=== PATIENT | female | born 1980 | race Caucasian/White ===

== ENCOUNTER 2019-11-30 17:15 | Emergency (ER) | payer OTHER ==
[2019-11-30] MEDS ORDERED: SUMAtriptan 6 MG/0.5 ML VIAL SUBQ STA (17:46)
--- NOTE | 2019-11-30 17:48 | ED Physician Documentation ---
PD HPI HEAD INJURY - Stated complaint Stated Complaint: DIZZY,NAUSEA,MIGRAINE - Chief complaint Chief Complaint: Neuro - History obtained from History obtained from: Patient - Additional information Additional information: Gradual onset headache which is severe for about a week. Started in the frontal area and temples, throbbing. Now more occipital and neck. She does have pain with flexion of the neck. Also bilateral ear pressure. She has no history of headaches or migraines. No fevers. Review of Systems Ten Systems: 10 systems reviewed and negative Constitutional: denies: Fever, Chills Nose: denies: Rhinorrhea / runny nose, Congestion Throat: denies: Dental pain / toothache, Sore throat Cardiac: denies: Chest pain / pressure, Palpitations Respiratory: denies: Dyspnea, Cough PD PAST MEDICAL HISTORY - Present Medications Home Medications: Ambulatory Orders Medication Instructions Recorded Confirmed Cyclobenzaprine [Flexeril] 10 mg PO TID PRN #20 tablet 11/30/19 Oxycodone HCl/Acetaminophen 1 - 2 each PO Q6H PRN #10 tablet 11/30/19 [Percocet 5-325 mg Tablet] - Allergies Allergies/Adverse Reactions: Allergies Allergy/AdvReac Type Severity Reaction Status Date / Time ketorolac [From Toradol] Allergy Anaphylaxis Verified 11/30/19 17:29 PD ED PE NORMAL - Vitals Vital signs reviewed: Yes - General General: Alert and oriented X 3, Other (She is photophobic, slightly uncomfor table) - HEENT HEENT: PERRL, EOMI, Ears normal, Pharynx benign - Neck Neck: Other (Mild neck stiffness without overt meningismus.) - Cardiac Cardiac: RRR, No murmur - Respiratory Respiratory: No respiratory distress, Clear bilaterally - Abdomen Abdomen: Non tender - Back Back: No CVA TTP, No spinal TTP - Derm Derm: Normal color, Warm and dry - Extremities Extremities: No edema, No calf tenderness / cord - Neuro Neuro: Alert and oriented X 3, Normal speech Results - Vitals Vitals: Vital Signs - 24 hr 11/30/19 11/30/19 11/30/19 17:22 17:52 19:58 Temperature 36.7 C 36.4 C L Heart Rate 68 70 63 Respiratory 16 16 14 Rate Blood Pressure 125/69 116/79 107/81 H O2 Saturation 100 100 98 Oxygen O2 Source Room air - Labs Labs: Microbiology 11/30/19 18:20 CSF Culture - Preliminary Cerebral Spinal Fluid Laboratory Tests 11/30/19 11/30/19 11/30/19 18:20 18:48 18:48 WBC 7.3 RBC 4.64 Hgb 13.9 Hct 41.4 MCV 89.2 MCH 30.0 MCHC 33.6 RDW 13.3 Plt Count 337 MPV 9.0 Neut # (Auto) 4.6 Lymph # (Auto) 2.0 [place] # (Auto) 0.5 Eos # (Auto) 0.2 Baso # (Auto) 0.1 Absolute Nucleated RBC 0.00 Nucleated RBC % 0.0 Sodium 140 Potassium 3.5 Chloride 102 Carbon Dioxide 25 Anion Gap 13.0 BUN 13 Creatinine 0.9 Estimated GFR (MDRD) 70 L Glucose 78 Calcium 9.4 Total Bilirubin 0.9 AST 20 ALT 19 Alkaline Phosphatase 57 Total Protein 8.8 H Albumin 4.7 Globulin 4.1 Albumin/Globulin Ratio 1.1 Lipase 46 CSF Color COLORLESS CSF Clarity CLEAR Xanthrochromic ABSENT CSF WBC 1 CSF RBC 19 H CSF Cell Count Tube # CSF TUBE# 3 CSF Glucose 57 CSF Total Protein 20 Procedures - Lumbar Puncture Position: Sitting Location: L3-L4 Anesthesia: Local lidocaine CSF: Clear Other: Sterile prep and drape, Patient tolerated well, No complications PD MEDICAL DECISION MAKING - ED course ED course: 39-year-old woman with gradual onset severe headache, this is not typical for her. She is under a lot of stress and some compliance are consistent with both migraine or tension headache. Initially did not want any sedating medications because she was planning on driving, but actually her headache changed after the Imitrex subcutaneously and wanted to try something else. Nurse was unable to place an IV so she was given oral oxycodone and Reglan. Given the atypical nature of this headache for her and LP was done to rule out meningitis. It was slightly traumatic, but there is no evidence of meningitis and the small number of red cells is from the traumatic nature of the tap, noting there is no xanthochromia. Departure - Departure Disposition: 01 Home, Self Care Clinical Impression: Migraine Qualifiers: Migraine type: unspecified Status migrainosus presence: with status migrainosus Intractability: intractable Qualified Code(s): G43.911 - Migraine, unspecified, intractable, with status migrainosus Condition: Good Record reviewed to determine appropriate education?: Yes Instructions: ED Headache Tension, ED Headache Migraine Prescriptions: Cyclobenzaprine [Flexeril] 10 mg PO TID PRN #20 tablet PRN Reason: Spasms Oxycodone HCl/Acetaminophen [Percocet 5-325 mg Tablet] 1 - 2 each PO Q6H PRN #10 tablet PRN Reason: pain Comments: Call your doctor to arrange a follow-up appointment, make the next available appointment. In the interim, return anytime if worse or if new symptoms develop. Discharge Date/Time: 11/30/19 20:05
[2019-11-30] MEDS ORDERED: LIDOCAINE 2%-EPI 1:100000 20 ML MDV ONE (18:22)
[2019-11-30] MEDS ORDERED: METOCLOPRAMIDE 10 MG/2 ML VIAL IVP STA (18:35)
[2019-11-30] MEDS ORDERED: HYDROmorphone 1 MG/ML CARPUJECT IVP STA (18:35)
[2019-11-30 18:50] LABS: CLARITY,CSF CLEAR (CLEAR); CSF TUBE # CSF TUBE# 3
[2019-11-30 18:51] LABS: COLOR,CSF COLORLESS (COLORLESS); CSF XANTHOCHROMIA ABSENT (ABSENT); WHITE BLOOD CELL,CSF 1 /mm^3 (0-5)
[2019-11-30 18:54] LABS: RED BLOOD CELL,CSF 19 /mm^3 (0-1)
[2019-11-30 18:58] LABS: CSF - GLUCOSE 57 mg/dL (45-70)
[2019-11-30 19:15] LABS: BASOPHILS # (AUTO) 0.1 10^3/uL (0.0-0.1); BASOPHILS % (AUTO) 0.8 %; EOSINOPHILS # (AUTO) 0.2 10^3/uL (0.0-0.7); EOSINOPHILS % (AUTO) 2.3 %; HGB - HEMOGLOBIN 13.9 g/dL (12.0-16.0); LYMPHOCYTES % (AUTO) 27.6 %; MEAN CORPUSCULAR HGB CONC 33.6 g/dL (32.0-36.0); MEAN CORPUSCULAR VOLUME 89.2 fL (81.0-99.0); MONOCYTES # (AUTO) 0.5 10^3/uL (0.0-1.0); MONOCYTES % (AUTO) 6.6 %; NEUTROPHILS # (AUTO) 4.6 10^3/uL (1.5-6.6); NEUTROPHILS % (AUTO) 62.4 %; PLT - PLATELET COUNT 337 10^3/uL (130-450); RED BLOOD COUNT 4.64 10^6/uL (4.20-5.40); RED CELL DISTRIBUTION WIDTH 13.3 % (12.0-15.0); WHITE BLOOD COUNT 7.3 x10^3/uL (4.8-10.8)
[2019-11-30] MEDS ORDERED: oxyCODONE 5 MG TABLET PO STA (19:21)
[2019-11-30] MEDS ORDERED: METOCLOPRAMIDE 10 MG TABLET PO STA (19:21)
[2019-11-30 19:26] LABS: ALBUMIN 4.7 g/dL (3.2-5.5); ALBUMIN/GLOBULIN RATIO 1.1 (1.0-2.2); BILIRUBIN,TOTAL 0.9 mg/dL (0.2-1.0); CALCIUM 9.4 mg/dL (8.5-10.3); CREATININE 0.9 mg/dL (0.4-1.0); TOTAL PROTEIN 8.8 g/dL (6.7-8.2)
[2019-11-30 19:59] VITALS: BP 107/81
[2019-12-03 16:36] LABS: SOURCE CEREBROSPINAL FLUID
== END 2019-11-30 20:05 | disposition home or self-care (01) ==
LOC: ED 17:15
DX: G43.911 Migraine, unspecified, intractable, with status migrainosus (principal)
CPT/HCPCS: 36415; 62270; 80053; 82945; 83690; 84157; 85025; 87040; 87070; 87205; 87529; 89051; 96372; 99283; 99284; A9270; 86695; 86696

== ENCOUNTER 2019-12-04 11:52 | Emergency (ER) | payer OTHER ==
--- NOTE | 2019-12-04 13:24 | ED Physician Documentation ---
PD HPI HEADACHE - Stated complaint Stated Complaint: POST LP GAVIRIA - Chief complaint Chief Complaint: Neuro - History obtained from History obtained from: Patient - History of Present Illness Timing - onset: How many weeks ago (has had 1-2 weeks of headache and seen in ER 4 days ago with eval by labs and LP. She states GAVIRIA improved with meds and was lessened for couple of days and now back again since yesterday. similar in character though is worse with sitting/standing up. Still with light sensitive and nauseated. Less PO.) Timing - onset during: Light activity Timing - details: Gradual onset, Still present, Waxing and waning Location: Back, Right Quality: Throbbing, Aching Associated symptoms: Nausea, Vomiting. No: Fever, Stiff neck Worsened by: Light Contributing factors: No: Recent illness, Trauma Recently seen: Emergency Dept Review of Systems Constitutional: denies: Fever, Chills Nose: denies: Rhinorrhea / runny nose, Congestion Throat: denies: Sore throat Cardiac: denies: Chest pain / pressure Respiratory: denies: Cough GI: reports: Nausea, Vomiting. denies: Abdominal Pain Neurologic: reports: Generalized weakness. denies: Focal weakness, Altered mental status PD PAST MEDICAL HISTORY - Past Medical History Respiratory: Asthma - Past Surgical History General: Appendectomy - Present Medications Home Medications: Ambulatory Orders Medication Instructions Recorded Confirmed Cyclobenzaprine [Flexeril] 10 mg PO TID PRN #20 tablet 11/30/19 Oxycodone HCl/Acetaminophen 1 - 2 each PO Q6H PRN #10 tablet 11/30/19 [Percocet 5-325 mg Tablet] Amitriptyline HCl 25 mg PO QPM #15 tablet 12/04/19 Hydrocodone/Acetaminophen 1 each PO Q6H PRN #12 tablet 12/04/19 [Hydrocodone-Acetamin 5-325 mg] Ondansetron Odt [Zofran] 4 mg TL Q6H PRN #15 tablet 12/04/19 dexAMETHasone [Decadron] 4 mg PO DAILY #5 tablet 12/04/19 - Allergies Allergies/Adverse Reactions: Allergies Allergy/AdvReac Type Severity Reaction Status Date / Time ketorolac [From Toradol] Allergy Anaphylaxis Verified 12/04/19 11:59 - Social History Does the pt smoke?: No Smoking Status: Never smoker Does the pt drink ETOH?: No Does the pt have substance abuse?: No - Immunizations Immunizations are current?: Yes PD ED PE NORMAL - Vitals Vital signs reviewed: Yes - General General: Alert and oriented X 3, Well developed/nourished - HEENT HEENT: PERRL, EOMI - Neck Neck: Supple, no meningeal sign, No adenopathy - Cardiac Cardiac: RRR, No murmur - Respiratory Respiratory: Clear bilaterally - Abdomen Abdomen: Soft, Non tender - Back Back: No spinal TTP (back with healing LP needle sites without swelling, redness, nor focal tenderness. ) - Derm Derm: Normal color, Warm and dry - Extremities Extremities: No tenderness to palpate, Normal ROM s pain - Neuro Neuro: Alert and oriented X 3, knitter hand 2-12 intact, No motor deficit, No sensory deficit, Normal speech, Other Results - Vitals Vitals: Vital Signs - 24 hr 12/04/19 12/04/19 12/04/19 11:59 14:32 15:17 Heart Rate 81 84 70 Respiratory 16 16 16 Rate Blood Pressure 123/64 107/68 108/60 O2 Saturation 100 100 100 12/04/19 16:34 Heart Rate 67 Respiratory 16 Rate Blood Pressure 103/61 O2 Saturation 100 Oxygen O2 Source Room air - Labs Labs: Laboratory Tests 12/04/19 12/04/19 13:55 13:55 WBC 6.4 RBC 4.26 Hgb 12.8 Hct 38.1 MCV 89.4 MCH 30.0 MCHC 33.6 RDW 13.1 Plt Count 287 MPV 9.0 Neut # (Auto) 4.8 Lymph # (Auto) 1.2 L [place] # (Auto) 0.3 Eos # (Auto) 0.1 Baso # (Auto) 0.0 Absolute Nucleated RBC 0.00 Nucleated RBC % 0.0 Sodium 140 Potassium 3.7 Chloride 105 Carbon Dioxide 24 Anion Gap 11.0 BUN 10 Creatinine 1.0 Estimated GFR (MDRD) 62 L Glucose 91 Calcium 8.7 C-Reactive Protein < 1.0 - Rads (name of study) head CT Radiology: Prelim report reviewed (no acut process), See rad report PD MEDICAL DECISION MAKING - ED course Complexity details: re-evaluated patient (improved quite a bit with IV fluids, and meds targeted to migraine. She is able to walk to bathroom with minimal headahce, but not compleltely resolved. ), considered differential (was okay for couple of days, now GAVIRIA again. Seems counter to what expeced with post LP. But does feel worse with sitting up. ), d/w patient Departure - Departure Disposition: 01 Home, Self Care Clinical Impression: New persistent daily headache Migraine Qualifiers: Migraine type: without aura Condition: Stable Record reviewed to determine appropriate education?: Yes Instructions: ED Cephalgia Unspecified Follow-Up: JOSUE Huggins [Provider Group] Prescriptions: Amitriptyline HCl 25 mg PO QPM #15 tablet dexAMETHasone [Decadron] 4 mg PO DAILY #5 tablet Hydrocodone/Acetaminophen [Hydrocodone-Acetamin 5-325 mg] 1 each PO Q6H PRN #12 tablet PRN Reason: Pain Ondansetron Odt [Zofran] 4 mg TL Q6H PRN #15 tablet PRN Reason: Nausea / Vomiting Comments: Rest further the next 1 to 2 days with light activity only. Try to stay well- hydrated. Decadron steroid daily for the next 5 days. Ondansetron every 6 hours if needed for nausea. Add Tylenol or ibuprofen or hydrocodone as needed for headache. Given the new onset of consistent headache, we can also try amitriptyline 25 mg nightly for 1 to 2 weeks presuming a migraine or tension headache or other functional headache such as daily headache syndrome etc. [place] call tomorrow for an appointment. If unable to see them in persistent symptoms more than 2 to 3 days, return here and return if worsened. Discharge Date/Time: 12/04/19 16:51
[2019-12-04] MEDS ORDERED: diphenhydrAMINE INJ 50 MG/ML VIAL IVP STA (13:44)
[2019-12-04] MEDS ORDERED: DEXAMETHASONE 10 MG/ML VIAL IVP STA (13:44)
[2019-12-04] MEDS ORDERED: SODIUM CHLORIDE 0.9% 1,000 ML IV STA ×2 (13:44→13:46)
[2019-12-04] MEDS ORDERED: PROCHLORPERAZINE 10 MG/2 ML VIAL IVP STA (13:44)
[2019-12-04 14:08] LABS: BASOPHILS % (AUTO) 0.5 %; EOSINOPHILS # (AUTO) 0.1 10^3/uL (0.0-0.7); EOSINOPHILS % (AUTO) 0.9 %; HGB - HEMOGLOBIN 12.8 g/dL (12.0-16.0); LYMPHOCYTES # (AUTO) 1.2 10^3/uL (1.5-3.5); LYMPHOCYTES % (AUTO) 18.3 %; MEAN CORPUSCULAR HGB CONC 33.6 g/dL (32.0-36.0); MEAN CORPUSCULAR VOLUME 89.4 fL (81.0-99.0); MONOCYTES # (AUTO) 0.3 10^3/uL (0.0-1.0); MONOCYTES % (AUTO) 5.2 %; NEUTROPHILS # (AUTO) 4.8 10^3/uL (1.5-6.6); NEUTROPHILS % (AUTO) 74.8 %; PLT - PLATELET COUNT 287 10^3/uL (130-450); RED BLOOD COUNT 4.26 10^6/uL (4.20-5.40); RED CELL DISTRIBUTION WIDTH 13.1 % (12.0-15.0); WHITE BLOOD COUNT 6.4 x10^3/uL (4.8-10.8)
[2019-12-04 14:22] LABS: BUN - BLOOD UREA NITROGEN 10 mg/dL (6-20); CALCIUM 8.7 mg/dL (8.5-10.3); CARBON DIOXIDE - CO2 24 mmol/L (21-32); CHLORIDE 105 mmol/L (101-111); GLUCOSE 91 mg/dL (70-100); SODIUM 140 mmol/L (135-145)
--- NOTE | 2019-12-04 14:24 | CT Report ---
PROCEDURE: HEAD WO INDICATIONS: headache for 1-2 weeks TECHNIQUE: Noncontrast 4.5 mm thick angled axial sections acquired from the foramen magnum to the vertex. For r adiation dose reduction, the following was used: automated exposure control, adjustment of mA and/or kV according to patient size. COMPARISON: None. FINDINGS: Image quality: Excellent. CSF spaces: Basal cisterns are patent. No extra-axial fluid collections. Ventricles are normal in size and shape. Brain: No midline shift. No intracranial masses or hemorrhage. [place]-white matter interface is norm al. Skull and face: Calvarium and visualized facial bones are intact, without suspicious lesions. Sinuses: Visualized sinuses and mastoids are clear. IMPRESSION: Unremarkable head CT. No evidence of acute stroke, hemorrhage, or mass. Reviewed by: Edson Hutson MD on 12/04/2019 2:23 PM PDT Approved by: Edson Hutson MD on 12/04/2019 2:23 PM PDT Station ID: [id number]
[2019-12-04 14:45] LABS: CRP - C-REACTIVE PROTEIN < 1.0 mg/dL (0-1.0)
[2019-12-04 16:35] VITALS: BP 103/61
== END 2019-12-04 16:51 | disposition home or self-care (01) ==
LOC: ED 11:52
DX: G43.009 Migraine without aura, not intractable, without status migrainosus (principal)
CPT/HCPCS: 36415; 70450; 80048; 85025; 86140; 96361; 96374; 99284; J1200

== ENCOUNTER 2021-06-13 20:54 | Emergency (ER) | payer OTHER ==
--- NOTE | 2021-06-13 21:29 | XRAY Report ---
PROCEDURE: Chest 1 View X-Ray INDICATIONS: Chest pain TECHNIQUE: One view of the chest was acquired. COMPARISON: None. FINDINGS: Surgical changes and devices: None. Lungs and pleura: No pleural effusions or pneumothorax. Approximately 1 cm nodular opacity in the ri ght midlung is nonspecific. Lungs otherwise clear. Mediastinum: Mediastinal contours appear normal. Heart size is normal. Bones and chest wall: No suspicious bony lesions. Overlying soft tissues appear unremarkable. IMPRESSION: Approximately 1 cm nodular opacity in the right midlung is nonspecific. This is likely infectious/inf lammatory, especially in the absence of any prior malignancy. Correlation with any prior studies to b e helpful to document stability. A CT chest could be considered for further evaluation, and can be ob tained in a nonemergent outpatient basis if the patient is stable. Reviewed by: Luis Fernando Pan MD on 06/13/2021 9:27 PM PDT Approved by: Luis Fernando Pan MD on 06/13/2021 9:27 PM PDT Station ID: [id number]
[2021-06-13 21:39] LABS: BASOPHILS # (AUTO) 0.1 10^3/uL (0.0-0.1); BASOPHILS % (AUTO) 0.9 %; EOSINOPHILS # (AUTO) 0.2 10^3/uL (0.0-0.7); EOSINOPHILS % (AUTO) 2.8 %; HGB - HEMOGLOBIN 13.3 g/dL (12.0-16.0); LYMPHOCYTES # (AUTO) 2.3 10^3/uL (1.5-3.5); LYMPHOCYTES % (AUTO) 28.1 %; MEAN CORPUSCULAR HEMOGLOBIN 29.4 pg (27.0-31.0); MEAN CORPUSCULAR HGB CONC 33.3 g/dL (32.0-36.0); MEAN CORPUSCULAR VOLUME 88.3 fL (81.0-99.0); MEAN PLATELET VOLUME 9.3 fL (7.9-10.8); MONOCYTES # (AUTO) 0.6 10^3/uL (0.0-1.0); MONOCYTES % (AUTO) 6.9 %; NEUTROPHILS % (AUTO) 61.1 %; PLT - PLATELET COUNT 319 10^3/uL (130-450); RED BLOOD COUNT 4.53 10^6/uL (4.20-5.40); RED CELL DISTRIBUTION WIDTH 13.3 % (12.0-15.0); WHITE BLOOD COUNT 8.1 x10^3/uL (4.8-10.8)
[2021-06-13] MEDS ORDERED: SODIUM CHLORIDE 0.9% 1,000 ML IV STA (21:39)
[2021-06-13 21:47] LABS: ALBUMIN 3.9 g/dL (3.2-5.5); ALBUMIN/GLOBULIN RATIO 1.1 (1.0-2.2); BILIRUBIN,TOTAL 0.5 mg/dL (0.2-1.0); CALCIUM 8.8 mg/dL (8.5-10.3); CREATININE 0.9 mg/dL (0.4-1.0); POTASSIUM 3.8 mmol/L (3.5-5.0); TOTAL PROTEIN 7.4 g/dL (6.7-8.2)
[2021-06-13 22:04] LABS: HCG UR QUAL NEGATIVE
--- NOTE | 2021-06-13 22:04 | ED Physician Documentation ---
History of Present Illness - Stated complaint Stated Complaint: PALPITATIONS/SOA/HEADACHES - Chief complaint Chief Complaint: Cardiac - History obtained from History obtained from: Patient - Additonal information Additional information: Patient is a 41-year-old female with no Significant past medical history presenting for evaluation of palpitations. She was recently told that she may have a heart block (patient believes first-degree). She has been having episodes of palpitations for the last year and was referred to a lan analyst. She has an appointment to be seen next week. For the last 3 days she has been having increased palpitations with feeling heart pounding sensationWhich she feels primarily at night when laying down but also throughout the day. She denies associated chest pain or difficulty breathing. At times she does feel dizzy and lightheaded. No vomiting, diarrhea. She does at times also report feeling heaviness in all of her muscles and fatigue.Due to increased heart pounding sensation today patient came to the emergency department for evaluation. Denies alcohol, drug use, concern for , Excess caffeine use.She has been using a natural electrolyte drink in the last 3 weeks Denies that it is an energy drink. Review of Systems Constitutional: denies: Fever Nose: denies: Congestion Cardiac: reports: Palpitations. denies: Chest pain / pressure Respiratory: denies: Cough GI: denies: Abdominal Pain, Vomiting : denies: Dysuria Musculoskeletal: denies: Back pain Neurologic: reports: Generalized weakness, Headache (History of migraines, not worsening). denies: Syncope, Head injury PD PAST MEDICAL HISTORY - Past Medical History Respiratory: Asthma - Past Surgical History General: Appendectomy - Present Medications Home Medications: Ambulatory Orders Medication Instructions Recorded Confirmed Cetirizine HCl [Zyrtec] 10 mg PO DAILY 06/13/21 06/13/21 Clobetasol 0.05% Oint [Temovate 1 applic TOP DAILY 06/13/21 06/13/21 0.05% Oint] Ketoconazole/Skin Cleanser 1 applic TOP DAILY 06/13/21 06/13/21 [K[place] 2% Foam Kit] Norgestimate-Ethinyl Estradiol 1 tab PO DAILY 06/13/21 06/13/21 [Qym-Rx-Pacvgcog Tablet] - Allergies Allergies/Adverse Reactions: Allergies Allergy/AdvReac Type Severity Reaction Status Date / Time ketorolac [From Toradol] Allergy Anaphylaxis Verified 06/13/21 20:58 - Social History Does the pt smoke?: No Smoking Status: Never smoker Does the pt drink ETOH?: No Does the pt have substance abuse?: No - Immunizations Immunizations are current?: Yes PD ED PE NORMAL - General General: Alert and oriented X 3, No acute distress, Well developed/nourished - HEENT HEENT: Atraumatic, Moist mucous membranes - Neck Neck: Supple, no meningeal sign - Cardiac Cardiac: RRR, No murmur, Strong equal pulses - Respiratory Respiratory: No respiratory distress, Clear bilaterally - Abdomen Abdomen: Normal bowel sounds, Soft, Non tender, Non distended - Derm Derm: Normal color, No rash - Extremities Extremities: No deformity, No edema - Neuro Neuro: Alert and oriented X 3, No motor deficit, No sensory deficit, Normal speech Eye Opening: Spontaneous Motor: Obeys Commands Verbal: Oriented GCS Score: 15 - Psych Psych: Normal mood, Normal affect Results - Vitals Vitals: Vital Signs - 24 hr 06/13/21 06/13/21 06/13/21 20:58 21:31 21:33 Temperature 36.5 C Heart Rate 78 68 70 Respiratory 16 16 16 Rate Blood Pressure 137/93 H 121/69 121/69 O2 Saturation 98 99 99 06/13/21 06/13/21 22:13 22:51 Temperature Heart Rate 73 73 Respiratory 16 16 Rate Blood Pressure 108/68 108/68 O2 Saturation 99 99 Oxygen O2 Source Room air - EKG (time done) 2113 Rate: Rate (enter#) (71) Rhythm: NSR Roy: Normal Intervals: Normal HI Ischemia: No: ST elevation c/w ischemia Computer interpretation: Agree with computer - Labs Labs: Laboratory Tests 06/13/21 06/13/21 06/13/21 21:26 21:26 21:26 WBC 8.1 RBC 4.53 Hgb 13.3 Hct 40.0 MCV 88.3 MCH 29.4 MCHC 33.3 RDW 13.3 Plt Count 319 MPV 9.3 Neut # (Auto) 5.0 Lymph # (Auto) 2.3 [place] # (Auto) 0.6 Eos # (Auto) 0.2 Baso # (Auto) 0.1 Absolute Nucleated RBC 0.00 Nucleated RBC % 0.0 Sodium 137 Potassium 3.8 Chloride 102 Carbon Dioxide 26 Anion Gap 9.0 BUN 20 Creatinine 0.9 Estimated GFR (MDRD) 70 L Glucose 102 H Calcium 8.8 Total Bilirubin 0.5 AST 21 ALT 18 Alkaline Phosphatase 57 Troponin I High Sens < 2.3 L Total Protein 7.4 Albumin 3.9 Globulin 3.5 Albumin/Globulin Ratio 1.1 Lipase 46 Urine HCG, Qual 06/13/21 21:50 WBC RBC Hgb Hct MCV MCH MCHC RDW Plt Count MPV Neut # (Auto) Lymph # (Auto) [place] # (Auto) Eos # (Auto) Baso # (Auto) Absolute Nucleated RBC Nucleated RBC % Sodium Potassium Chloride Carbon Dioxide Anion Gap BUN Creatinine Estimated GFR (MDRD) Glucose Calcium Total Bilirubin AST ALT Alkaline Phosphatase Troponin I High Sens Total Protein Albumin Globulin Albumin/Globulin Ratio Lipase Urine HCG, Qual NEGATIVE PD MEDICAL DECISION MAKING - ED course Complexity details: reviewed results, re-evaluated patient, d/w patient ED course: Patient presenting for evaluation of palpitations. She is scheduled to see a lan analyst next week. EKG is reassuring with regular sinus rhythm and no signs of ectopy or arrhythmia.Labs are also unrevealing with no signs of cardiac ischemia After symptoms lasting greater than 6 hours. Patient is PERC negative. She has been symptom-free while in the emergency department.Did review abnormal chest x-ray finding and need for close follow-up with primary care doctor For outpatient CT scan of the chest. Patient feels comfortable with discharge. She is aware of strict return precautions. She will plan to follow-up with the lan analyst as scheduled next week. Departure - Departure Disposition: 01 Home, Self Care Clinical Impression: Palpitations, Abnormal chest xray Condition: Stable Instructions: ED Palpitations Comments: You were evaluated for palpitations this evening. Your lab tests are reassuring and your EKG appears to be a normal rhythm. Please follow-up with the lan analyst as scheduled next week.Please limit alcohol and caffeine use. I would also stop anySupplement drinks even if they are labeled as natural For the time being until you see the lan analyst. You had a chest x-ray done that showed an abnormal nodule in the right lung.I do not believe it is related to an infection Based on your history and exam today. This abnormal nodule does need close follow-up with your primary care doctor. You may need another chest x-ray or even a CT scan of your chest to better evaluate this area. IMPRESSION: Approximately 1 cm nodular opacity in the right midlung is nonspecific. This is likely infectious/inflammatory, especially in the absence of any prior malignancy. Correlation with any prior studies to be helpful to document stability. A CT chest could be considered for further evaluation, and can be obtained in a nonemergent outpatient basis if the patient is stable. Please return to the emergency department with any concerning symptoms such as dizziness, fainting, Heart racing,chest pain, difficulty breathing. Discharge Date/Time: 06/13/21 22:53
[2021-06-13 22:33] VITALS: BP 108/68
== END 2021-06-13 22:53 | disposition home or self-care (01) ==
LOC: ED 20:54
DX: R00.2 Palpitations (principal); R91.8 Other nonspecific abnormal finding of lung field
CPT/HCPCS: 36415; 80053; 81025; 83690; 84484; 85025; 93005; 99284

== ENCOUNTER 2021-07-03 10:35 | Emergency (ER) | payer OTHER ==
--- NOTE | 2021-07-03 15:09 | ED Physician Documentation ---
PD HPI URI - Stated complaint Stated Complaint: SOA - Chief complaint Chief Complaint: Resp - History obtained from History obtained from: Patient - History of Present Illness Timing - onset: Yesterday Timing details: Abrupt onset, Still present Associated symptoms: Fever, Chills, Nasal congestion, Dry cough, Dyspnea (with wheezing/exac of her asthma, with MDI not working well.) Contributing factors: Sick contact (her 2 kids at home with URI symptoms and have tested positive for COVID 2 days ago. Patient ran out of home tests, but believes she likely has COVID.) Improves by: No: MDI/nebulizer Worsened by: Activity, Breathing Similar symptoms before: Has not had sx before Recently seen: Not recently seen Review of Systems Constitutional: reports: Fever, Chills, Myalgias Nose: reports: Congestion. denies: Rhinorrhea / runny nose Throat: denies: Sore throat Cardiac: denies: Chest pain / pressure Respiratory: reports: Dyspnea, Cough, Wheezing GI: denies: Nausea, Vomiting, Diarrhea Skin: denies: Rash PD PAST MEDICAL HISTORY - Past Medical History Cardiovascular: None Respiratory: Asthma Neuro: None Endocrine/Autoimmune: None - Past Surgical History General: Appendectomy - Present Medications Home Medications: Ambulatory Orders Medication Instructions Recorded Confirmed Cetirizine HCl [Zyrtec] 10 mg PO DAILY 06/13/21 06/13/21 Clobetasol 0.05% Oint [Temovate 1 applic TOP DAILY 06/13/21 06/13/21 0.05% Oint] Ketoconazole/Skin Cleanser 28 1 applic TOP DAILY 06/13/21 06/13/21 [Ketodan 2% Foam Kit] Norgestimate-Ethinyl Estradiol 1 tab PO DAILY 06/13/21 06/13/21 [Juy-Rc-Hvcqbtqn Tablet] Benzonatate [Tessalon] 100 mg PO TID PRN #20 cap 07/03/21 Nirmatrelvir/Ritonavir [Paxlovid] 1 kit PO BID 5 Days #1 kit 07/03/21 Ondansetron Odt [Zofran] 4 mg TL Q6H PRN #10 tablet 07/03/21 dexAMETHasone [Decadron] 4 mg PO DAILY #5 tablet 07/03/21 - Allergies Allergies/Adverse Reactions: Allergies Allergy/AdvReac Type Severity Reaction Status Date / Time ketorolac [From Toradol] Allergy Anaphylaxis Verified 07/03/21 10:52 - Social History Does the pt smoke?: No Smoking Status: Never smoker Does the pt drink ETOH?: No Does the pt have substance abuse?: No - Immunizations Immunizations are current?: Yes PD ED PE NORMAL - Vitals Vital signs reviewed: Yes - General General: Alert and oriented X 3, No acute distress, Well developed/nourished - HEENT HEENT: Moist mucous membranes, Pharynx benign - Neck Neck: Supple, no meningeal sign, No adenopathy - Cardiac Cardiac: RRR, No murmur - Respiratory Respiratory: No respiratory distress. No: Clear bilaterally (no coarse sounds but has diffuse exp wheezing. ) - Abdomen Abdomen: Soft, Non tender - Derm Derm: Normal color, Warm and dry - Extremities Extremities: No edema, No calf tenderness / cord - Neuro Neuro: Alert and oriented X 3, No motor deficit, Normal speech Results - Vitals Vitals: Oxygen O2 Source Room air PD MEDICAL DECISION MAKING - ED course Complexity details: considered differential (Her 2 children at home have tested positive for COVID and she has cough fever and viral syndrome. They did not have a home test available. She would prefer to have a test for COVID prior to any antiviral type medicines. We will obtain that and meanwhile treat her asthma exacerbation.), d/w patient ED course: presume she has COVID with symptoms and her 2 children are positive in the past few days, and has asthma exac with it. SHe might benefit from antivirals. She wants to wait for positive test, so I wrote xript for it rather than dispensing kit from ER. Departure - Departure Disposition: 01 Home, Self Care Clinical Impression: Close exposure to COVID-19 virus, Upper respiratory infection Exacerbation of asthma Qualifiers: Asthma severity: mild Asthma persistence: intermittent Qualified Code(s): J45.21 - Mild intermittent asthma with (acute) exacerbation Condition: Stable Record reviewed to determine appropriate education?: Yes Follow-Up: MICHELLE TIJERINA ARNP [Primary Care Provider] - Prescriptions: dexAMETHasone [Decadron] 4 mg PO DAILY #5 tablet Nirmatrelvir/Ritonavir [Paxlovid] 1 kit PO BID 5 Days #1 kit Benzonatate [Tessalon] 100 mg PO TID PRN #20 cap PRN Reason: Cough Ondansetron Odt [Zofran] 4 mg TL Q6H PRN #10 tablet PRN Reason: Nausea / Vomiting Comments: We did do a COVID test and that should result likely tomorrow. If that is positive, as presumption given your kids have COVID, then you would be eligible for an antiviral medication combination (paxlovid which is two antiviral medicines). You can take that if your COVID test is positive. Regarding your asthma exacerbation, continue with your albuterol inhaler with spacer 2 to 3 puffs 4 times a day regularly and extra times if needed for the next 7 to 10 days. Extra doses if needed. To that we would add neck some Methasone oral steroid as a stronger version of the Flovent that you normally use. Benzonatate or Tessalon if needed for cough. Tylenol if needed for fevers or pains. I transmitted your prescriptions to the [facility] pharmacy here in [place]. Discharge Date/Time: 07/03/21 15:51
[2021-07-03] MEDS ORDERED: CHERRY SYRUP 10 ML UDC PO ONE (15:23)
[2021-07-03] MEDS ORDERED: DEXAMETHASONE 10 MG/ML VIAL PO STA (15:23)
[2021-07-03] MEDS ORDERED: BENZONATATE 100 MG CAPSULE PO STA (15:23)
[2021-07-03] MEDS: ONDANSETRON ODT 4 MG TABLET TL STA ×2 (15:40)
[2021-07-03 15:47] VITALS: BP 119/67
== END 2021-07-03 15:51 | disposition home or self-care (01) ==
LOC: ED 10:35
DX: U07.1 COVID-19 (principal)
CPT/HCPCS: 87635; 99284; A9270; Q0162

== ENCOUNTER 2021-12-26 21:22 | Emergency (ER) | payer OTHER ==
[2021-12-26 21:47] LABS: RAPID STREP SCREEN Negative (Negative)
[2021-12-26 23:24] LABS: B. PARAPERTUSSIS- RESP PCR PAN NOT DETECTED; B. PERTUSSIS- RESP PCR PANEL NOT DETECTED; C. PNEUMONIAE- RESP PCR PANEL NOT DETECTED; CORONAVIRUS 229E-RESP PCR NOT DETECTED; CORONAVIRUS HKU1-RESP PCR NOT DETECTED; CORONAVIRUS NL63-RESP PCR NOT DETECTED; CORONAVIRUS OC43-RESP PCR NOT DETECTED; HUMAN METAPNEUMOVIRUS NOT DETECTED; INFLUENZA A- RESP PCR PANEL NOT DETECTED; INFLUENZA B - RESP PCR PANEL NOT DETECTED; M. PNEUMONIAE- RESP PCR PANEL NOT DETECTED; PARAINFLUENZA VIRUS 1 NOT DETECTED; PARAINFLUENZA VIRUS 2 NOT DETECTED; PARAINFLUENZA VIRUS 3 NOT DETECTED; PARAINFLUENZA VIRUS 4 NOT DETECTED; RHINOVIRUS/ENTEROVIRUS DETECTED; RSV- RESP PCR PANEL NOT DETECTED; SARS-CoV-2 -RESP PCR PANEL NOT DETECTED
--- NOTE | 2021-12-26 23:30 | ED Physician Documentation ---
PD HPI URI - Stated complaint Stated Complaint: FEVER/ACHES/THROAT PX - Chief complaint Chief Complaint: Fever - History obtained from History obtained from: Patient - History of Present Illness Timing - onset: How many days ago (4) Timing duration: Days (4) Timing details: Gradual onset, Still present Associated symptoms: Nasal congestion, Rhinorrhea, Sore throat, Dry cough Contributing factors: Sick contact (went to [facility] in [place] last week) Improves by: Rest, Medication Similar symptoms before: Has not had sx before Recently seen: Not recently seen - Additional information Additional information: Previously well 41-year-old Kelly Kern has developed symptoms of nasal congestion cough sore throat and some occasional dyspnea. She has a disabled daughter who has recently had to have casting on her legs and she has spent some time down at [facility] in [place]. Her daughter is currently being treated for otitis. Review of Systems Constitutional: reports: Fever Eyes: denies: Decreased vision Ears: reports: Tinnitus/ringing. denies: Ear pain Nose: reports: Rhinorrhea / runny nose, Congestion Throat: reports: Sore throat. denies: Dental pain / toothache Cardiac: denies: Chest pain / pressure, Palpitations Respiratory: reports: Dyspnea, Cough GI: denies: Abdominal Pain, Nausea, Vomiting, Constipation, Diarrhea : denies: Dysuria, Frequency PD PAST MEDICAL HISTORY - Past Medical History Cardiovascular: None Respiratory: Asthma Neuro: None Endocrine/Autoimmune: None - Past Surgical History General: Appendectomy - Present Medications Home Medications: Ambulatory Orders Medication Instructions Recorded Confirmed Norgestimate-Ethinyl Estradiol 1 tab PO DAILY 06/13/21 06/13/21 [Zcf-Hf-Uobisoxi Tablet] - Allergies Allergies/Adverse Reactions: Allergies Allergy/AdvReac Type Severity Reaction Status Date / Time ketorolac [From Toradol] Allergy Anaphylaxis Verified 12/26/21 21:34 - Social History Does the pt smoke?: No Smoking Status: Never smoker Does the pt drink ETOH?: No Does the pt have substance abuse?: No - Immunizations Immunizations are current?: Yes PD ED PE NORMAL - Vitals Vital signs reviewed: Yes (normal ) - General General: Alert and oriented X 3, No acute distress, Well developed/nourished - HEENT HEENT: Atraumatic, PERRL, EOMI, Ears normal, Other (mild pharyngeal erythema) - Neck Neck: Supple, no meningeal sign, No bony TTP - Cardiac Cardiac: RRR, No murmur - Respiratory Respiratory: No respiratory distress, Clear bilaterally - Abdomen Abdomen: Normal bowel sounds, Soft, Non tender, Non distended, No organomegaly - Back Back: No CVA TTP, No spinal TTP - Derm Derm: Normal color, Warm and dry, No rash - Extremities Extremities: No deformity, No edema - Neuro Neuro: Alert and oriented X 3, 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 parapertussis DNA (PCR) NOT DETECTED Nasal Coronavir 229E PCR NOT DETECTED Nasal Coronavir HKU1 PCR NOT DETECTED Nasal Coronavir NL63 PCR NOT DETECTED Nasal Coronavir OC43 PCR NOT DETECTED Nasal Enterovir/Rhinovir PCR DETECTED A Nasal Influenza B PCR NOT DETECTED Nasal Influenza A PCR NOT DETECTED Nasal Parainfluen 1 PCR NOT DETECTED Nasal Parainfluen 2 PCR NOT DETECTED Nasal Parainfluen 3 PCR NOT DETECTED Nasal Parainfluen 4 PCR NOT DETECTED Nasal RSV (PCR) NOT DETECTED Nasal B.pertussis DNA PCR NOT DETECTED Nasal C.pneumoniae (PCR) NOT DETECTED Antony Human Metapneumo PCR NOT DETECTED Nasal M.pneumoniae (PCR) NOT DETECTED Nasal SARS-CoV-2 (PCR) NOT DETECTED Group A Strep Rapid Negative PD MEDICAL DECISION MAKING - ED course Complexity details: reviewed results, re-evaluated patient, considered differential, d/w patient ED course: 41-year-old female with upper respiratory symptoms and a sore throat is concerned about the possibilities of contagion for her daughter. The patient tested positive for rhinovirus. Her daughter is currently being treated for otitis and could very well have had rhinovirus. The mother is reassured she is given a dose of dexamethasone for symptom control and encouraged to increase fluids. Departure - Departure Disposition: 01 Home, Self Care Clinical Impression: Rhinovirus infection Condition: Stable Instructions: Cold Virus Follow-Up: MICHELLE TIJERINA ARNP [Primary Care Provider] - Comments: Kelly, today it looks like you have infection with rhinovirus. This usually causes a cough nasal congestion sore throat and sometimes some shortness of breath. There is no evidence of ear infection today. The recommendation is to increase your fluids and use Tylenol or Advil for pains and fever. Expect to have improvement over the next 3 days.
[2021-12-26 23:32] VITALS: BP 113/72
[2021-12-26] MEDS ORDERED: DEXAMETHASONE 10 MG/ML VIAL PO STA (23:33)
[2021-12-26] MEDS ORDERED: CHERRY SYRUP 10 ML UDC PO ONE (23:33)
== END 2021-12-26 23:45 | disposition home or self-care (01) ==
LOC: ED 21:22
DX: B34.8 Other viral infections of unspecified site (principal); Z20.822 Contact with and (suspected) exposure to COVID-19
CPT/HCPCS: 87070; 87077; 87430; 87633; 99282; 99283; A9270

== ENCOUNTER 2022-03-18 09:07 | Outpatient (CLI) | payer OTHER ==
--- NOTE | 2022-03-18 13:15 | MRI Report ---
PROCEDURE: THORACIC SPINE WO INDICATIONS: CERVICALGIA, DORSALGIA TECHNIQUE: Noncontrast sagittal T1 spine echo and T2 fast spin echo, sagittal STIR, axial T1 and T2 fast spin ec ho through the thoracic spine. COMPARISON: None. FINDINGS: Image quality: Excellent. Alignment and Curvature: There is normal bony alignment. Bone Marrow: Mild increased T2-weighted signal is seen in the right transverse processes of the T5 a nd T6 vertebra, best seen on parasagittal STIR images (image 5 of series 6, and image 14 of series 8) . Marrow is of normal overall signal. No acute vertebral body compression fractures. Multilevel Mod ic type II degenerative endplate changes. Spinal Cord: Visualized spinal cord is normal in size and signal. Paraspinous Soft Tissues: No paravertebral masses. Miscellaneous: On axial images, central canal and foramina appear widely patent at all scanned level s. IMPRESSION: 1.Nonspecific focal [id number]-[id number] signal in the right transverse processes of the T5 and T6 verteb ra. Findings could be secondary to mild trabecular bone injury if there has been recent trauma, versu s benign hemangioma or other benign or malignant intraosseous masses. Consider repeat MRI with and wi thout contrast for further evaluation based on the clinical suspicion. 2.Mild multilevel degenerative endplate changes. No significant spinal canal stenosis or neuroforamin al narrowing. Reviewed by: Job Call MD on 03/18/2022 1:13 PM PST Approved by: Job Call MD on 03/18/2022 1:13 PM PST Station ID: [id number]
--- NOTE | 2022-03-18 15:51 | MRI Report ---
PROCEDURE: CERVICAL SPINE WO INDICATIONS: CERVICALGIA, DORSALGIA TECHNIQUE: Noncontrast sagittal T1 spin echo and T2 fast spin echo, sagittal STIR, foraminal oblique sagittal T2 fast spin echo, and axial gradient echo or T2 fast spin echo through the cervical spine. COMPARISON: None. FINDINGS: Image quality: Excellent. Alignment and Curvature: There is an appearance of cervical straightening. Bone Marrow: Marrow demonstrates normal overall signal. Spinal Cord: Visualized spinal cord has normal size and signal. No cerebellar tonsillar herniation. Paraspinous Soft Tissues: No paravertebral masses. Prevertebral soft tissues are normal in thicknes s. Discs: Minimal desiccation is at C6-7. C2-C3: No disc bulge, spinal stenosis or foraminal narrowing. C3-C4: No disc bulge, spinal stenosis or foraminal narrowing. C4-C5: Minimal disc bulge with slight effacement anterior thecal sac. No foraminal narrowing. C5-C6: Minimal disc bulge with slight effacement of the anterior thecal sac. No foraminal narrowing. C6-C7: No disc bulge, spinal stenosis or foraminal narrowing. C7-T1: No disc bulge, spinal stenosis or foraminal narrowing. IMPRESSION: Minimal disc bulges at C4-5 and C6-7. No foraminal narrowing. Reviewed by: Marjan García MD on 03/18/2022 3:50 PM PST Approved by: Marjan García MD on 03/18/2022 3:50 PM PST Station ID: [id number]
== END 2022-03-18 09:08 | disposition home or self-care (01) ==
LOC: DI 09:07
PROVIDERS: ATTEND Nurse Practitioner Family
DX: M54.2 Cervicalgia (principal); M47.814 Spondylosis without myelopathy or radiculopathy, thoracic region

== ENCOUNTER 2022-03-18 09:07 | Outpatient (CLI) | payer OTHER ==
--- NOTE | 2022-03-18 15:32 | MRI Report ---
PROCEDURE: LUMBAR SPINE WO INDICATIONS: LOW BACK PAIN TECHNIQUE: Noncontrast sagittal T1 spin echo and T2 fast echo, sagittal STIR, axial T1 and T2 fast spin echo thr ough the lumbar spine. In cases with scoliosis, additional coronal T2 fast spin echo may be performe d. COMPARISON: None. FINDINGS: Image quality: Excellent. Alignment and Curvature: There is normal bony alignment. Bone Marrow: Marrow is of normal overall signal. No acute vertebral body compression fractures. Spinal Cord: Conus medullaris terminates at the L1 level. Visualized cord demonstrates normal signa l and size. Paraspinous Soft Tissues: No paravertebral masses. Minimal to mild disc desiccation is present L4-5, L5-S1. L1-L2: No disc bulge, spinal stenosis or foraminal narrowing. L2-L3: No disc bulge, spinal stenosis or foraminal narrowing. Minimal epidural lipomatosis. L3-L4: No disc bulge, spinal stenosis or foraminal narrowing. Minimal epidural lipomatosis. L4-L5: Minimal disc bulge without spinal stenosis. No foraminal narrowing. L5-S1: Minimal disc bulge without spinal stenosis or foraminal narrowing. IMPRESSION: Minimal early degenerative changes most minimal L4-5 and L5-S1. No central stenosis or foraminal narrowing. Reviewed by: Marjan García MD on 03/18/2022 3:31 PM PST Approved by: Marjan García MD on 03/18/2022 3:31 PM PST Station ID: [id number]
== END 2022-03-18 09:08 | disposition home or self-care (01) ==
LOC: DI 09:07
PROVIDERS: ATTEND Nurse Practitioner Family
DX: M47.816 Spondylosis without myelopathy or radiculopathy, lumbar region (principal); M47.817 Spondylosis without myelopathy or radiculopathy, lumbosacral region; M54.2 Cervicalgia; M47.814 Spondylosis without myelopathy or radiculopathy, thoracic region

== ENCOUNTER 2022-07-21 15:53 | Outpatient (CLI) | payer OTHER ==
--- NOTE | 2022-07-21 16:58 | XRAY Report ---
PROCEDURE: Foot 2 View LT INDICATIONS: LEFT FOOT PAIN IN 2ND MTP JOINT TECHNIQUE: 2 views of the foot were acquired. COMPARISON: None. FINDINGS: Bones: No fractures or dislocations. No suspicious bony lesions. Soft tissues: No suspicious soft tissue calcifications or masses. IMPRESSION: No acute fracture. No osseous lesion. If symptoms and/or clinical suspicion for pathology continue, f urther assessment with repeat plain films, or advanced imaging (e.g., CT, MRI, or bone scan) is recom mended for further assessment. Reviewed by: Selvin Swift MD on 07/21/2022 4:56 PM PDT Approved by: Selvin Swift MD on 07/21/2022 4:56 PM PDT Station ID: [id number]
== END 2022-07-21 15:54 | disposition home or self-care (01) ==
LOC: DI 15:53
PROVIDERS: ATTEND Family Medicine
DX: M79.672 Pain in left foot (principal)

== ENCOUNTER 2023-02-12 16:58 | Outpatient (CLI) | payer OTHER ==
--- NOTE | 2023-02-13 13:09 | MRI Report ---
PROCEDURE: FOOT WO - LT INDICATIONS: LEFT FOOT PAIN TECHNIQUE: Noncontrast sagittal T1 spin echo and T2 fast spin echo with fat saturation, long-axis T1 spin echo a nd STIR, short-axis T1 spin echo and T2 fast spin echo with fat saturation through the forefoot. COMPARISON: Left foot radiographs 07/21/2022 FINDINGS: Image quality: Excellent. Bones and joints: No bone marrow contusions or metatarsal stress fractures. The sesamoid bones appe ar in expected positions, without internal edema. No intraosseous lesions. Moderate degenerative ch anges of the 1st tarsometatarsal joint with subchondral edema and subchondral cystic changes. Mild de generative changes of the 1st metatarsophalangeal joint and in the interphalangeal joints of the toes . Soft tissues: The visualized plantar foot muscles demonstrate normal signal and bulk. Visualized fl exor and extensor tendons appear intact, without tenosynovitis. The bulk of the Lisfranc ligament ap pears to be intact. No soft tissue ganglion cysts or bursal fluid collections. Sagittal images demon strate no evidence for plantar plate tears. IMPRESSION: Mild to moderate midfoot and forefoot osteoarthrosis, most notably at the 1st tarsometatarsal joint. Reviewed by: Job Call MD on 02/13/2023 1:07 PM PST Approved by: oJb Call MD on 02/13/2023 1:07 PM PST Station ID: [id number]
== END 2023-02-12 16:59 | disposition home or self-care (01) ==
LOC: DI 16:58
PROVIDERS: ATTEND Student in an Organized Health Care Education/Training Program
DX: M19.072 Primary osteoarthritis, left ankle and foot (principal)

== ENCOUNTER 2023-07-24 08:00 | Outpatient (CLI) | payer OTHER ==
[2023-07-24 18:24] LABS: BILIRUBIN,URINE NEGATIVE (NEGATIVE); GLUCOSE, URINE (UA) NEGATIVE (NEGATIVE); KETONES,URINE (UA) NEGATIVE (NEGATIVE); LEUKOCYTE ESTERASE, URINE NEGATIVE (NEGATIVE); NITRITE,URINE NEGATIVE (NEGATIVE); OCCULT BLOOD,URINE NEGATIVE (NEGATIVE); PH,URINE 8.5 PH (5.0-7.5); PROTEIN,URINE NEGATIVE (NEGATIVE); UROBILINOGEN,URINE 0.2 (NORMAL) E.U./dL (NORMAL)
[2023-07-24 18:31] LABS: CLARITY,URINE CLEAR (CLEAR)
[2023-07-24 18:42] LABS: BACTERIA,URINE Rare /HPF (None Seen); RBC,URINE 0-5 /HPF (0-5); SQUAMOUS EPITHELIAL CELL,UR FEW Squamous (<= Few); WBC,URINE 0-3 /HPF (0-5)
== END 2023-07-24 23:59 | disposition home or self-care (01) ==
LOC: LAB.WC 08:00
PROVIDERS: ATTEND Obstetrics & Gynecology
DX: Z34.80 Encounter for supervision of other normal pregnancy, unspecified trimester (principal)
CPT/HCPCS: 36415; 81001; 84702; 87086

== ENCOUNTER 2023-07-24 10:52 | Outpatient (CLI) | payer OTHER | END 2023-07-24 10:53 | disposition home or self-care (01) | LOC: LAB 10:52 | PROVIDERS: ATTEND Obstetrics & Gynecology | DX: Z34.80 Encounter for supervision of other normal pregnancy, unspecified trimester (principal) | CPT/HCPCS: 36415; 84702 ==

== ENCOUNTER 2023-07-27 15:31 | Outpatient (CLI) | payer OTHER ==
[2023-07-27 15:50] LABS: BASOPHILS # (AUTO) 0.1 10^3/uL (0.0-0.1); BASOPHILS % (AUTO) 0.7 %; EOSINOPHILS # (AUTO) 0.3 10^3/uL (0.0-0.7); EOSINOPHILS % (AUTO) 3.9 %; HCT - HEMATOCRIT 36.5 % (37.0-47.0); LYMPHOCYTES # (AUTO) 1.9 10^3/uL (1.5-3.5); LYMPHOCYTES % (AUTO) 21.5 %; MEAN CORPUSCULAR HEMOGLOBIN 28.8 pg (27.0-31.0); MEAN CORPUSCULAR HGB CONC 32.9 g/dL (32.0-36.0); MEAN CORPUSCULAR VOLUME 87.5 fL (81.0-99.0); MEAN PLATELET VOLUME 9.3 fL (7.9-10.8); MONOCYTES # (AUTO) 0.5 10^3/uL (0.0-1.0); MONOCYTES % (AUTO) 5.7 %; NEUTROPHILS # (AUTO) 5.9 10^3/uL (1.5-6.6); PLT - PLATELET COUNT 283 10^3/uL (130-450); RED BLOOD COUNT 4.17 10^6/uL (4.20-5.40); RED CELL DISTRIBUTION WIDTH 14.5 % (12.0-15.0); WHITE BLOOD COUNT 8.7 x10^3/uL (4.8-10.8)
[2023-07-28 04:11] LABS: HBsAG SCREEN Negative (Negative); HIV SCREEN 4TH GENERATION Non Reactive (Non Reactive)
[2023-07-28 05:12] LABS: RPR Non Reactive (Non Reactive)
[2023-07-28 09:09] LABS: VARICELLA-ZOSTER AB IGG 430 index (Immune >165)
[2023-07-29 00:10] LABS: HCV AB Non Reactive (Non Reactive)
== END 2023-07-27 15:32 | disposition home or self-care (01) ==
LOC: LAB 15:31
PROVIDERS: ATTEND Obstetrics & Gynecology
DX: Z34.80 Encounter for supervision of other normal pregnancy, unspecified trimester (principal); Z36.89 Encounter for other specified antenatal screening
CPT/HCPCS: 36415; 84702; 85025; 86592; 86762; 86787; 86803; 86850; 86900; 86901; 87340; 87389

== ENCOUNTER 2023-07-30 22:16 | Outpatient (CLI) | payer OTHER ==
--- NOTE | 2023-07-31 13:52 | Ultrasound Report ---
PROCEDURE: OB 1st Trimester w/TV INDICATIONS: POSITIVE TEST, INCONCLUSIVE VIABILITY OUTSIDE/PRIOR DATING DATA: Last menstrual period (LMP): 06/08/2023. LMP-based estimated date of delivery (SUGAR): 03/14/2024. First dating scan (date and location): 07/30/2023. Estimated date of delivery (SUGAR) from first dating scan: 03/24/2024. TECHNIQUE: Real-time scanning was performed of the fetus and maternal pelvic organs, with image documentation. Endovaginal scanning was also performed to better visualize the fetus and maternal ovaries. COMPARISON: None. FINDINGS: Intrauterine gestational sac present. Embryo: [place]-rump length measuring 4 mm, gestational age 6 weeks 0 days. MGSD measures 16 mm. Heart rate: No cardiac motion detected. Other: No perigestational fluid collection. No yolk sac seen. Measurement variability in dating: +/- 4 weeks by LMP, +/- 7 days by mean sac diameter (use before 6 weeks gestation if crown-rump length not able to be measured), +/- 5 days by crown-rump length (6-12 weeks gestation). Maternal organs: Small bilateral ovarian cysts. Right cyst measuring 1.1 cm. Left cyst measuring 1.8 cm. IMPRESSION: 1. Fuentes intrauterine at 6 weeks 0 days based on today's crown-rump length. [place]-rump length measuring 4 mm. No cardiac motion detected. Ultrasound findings suspicious for but not diagnostic of failure. Recommend clinical correl ation. 2. No perigestational hemorrhage. Recommend a short-term follow-up OB ultrasound in 7-13 days. Reviewed by: Loernzo Su MD on 07/31/2023 1:51 PM PDT Approved by: Lorenzo Su MD on 07/31/2023 1:51 PM PDT Station ID: [id number]
== END 2023-07-30 22:17 | disposition home or self-care (01) ==
LOC: DI 22:16
PROVIDERS: ATTEND Obstetrics & Gynecology
DX: Z34.81 Encounter for supervision of other normal pregnancy, first trimester (principal)

== ENCOUNTER 2023-08-01 09:59 | Outpatient (CLI) | payer OTHER | END 2023-08-01 10:00 | disposition home or self-care (01) | LOC: LAB 09:59 | PROVIDERS: ATTEND Obstetrics & Gynecology | DX: O36.80X0 Pregnancy with inconclusive fetal viability, not applicable or unspecified (principal) | CPT/HCPCS: 36415; 84702 ==

== ENCOUNTER 2023-08-03 15:22 | Outpatient (CLI) | payer OTHER | END 2023-08-03 15:23 | disposition home or self-care (01) | LOC: LAB 15:22 | PROVIDERS: ATTEND Obstetrics & Gynecology | DX: O36.80X0 Pregnancy with inconclusive fetal viability, not applicable or unspecified (principal) | CPT/HCPCS: 36415; 84702 ==

== ENCOUNTER 2023-08-03 21:16 | Outpatient (CLI) | payer OTHER ==
--- NOTE | 2023-08-03 22:53 | Ultrasound Report ---
PROCEDURE: OB 1st Trimester w/TV INDICATIONS: WITH INCONCLUSIVE VIABILITY OUTSIDE/PRIOR DATING DATA: Last menstrual period (LMP): 06/08/2023. LMP-based estimated date of delivery (SUGAR): 03/24/2024. TECHNIQUE: Real-time scanning was performed of the fetus and maternal pelvic organs, with image documentation. Endovaginal scanning was also performed to better visualize the fetus and maternal ovaries. COMPARISON: 07/30/2023. FINDINGS: There is a probable intrauterine gestational sac identified. No definite pole identi fied. Estimated gestational age based off mean gestational sac diameter is approximately 1.62 cm/6 we eks and 3 days. Possible pole measures 0.39 cm which correlates with approximately 6 weeks and 0 days estimated gestational age. No cardiac activity identified. Questionable 2 yolk sacs vers us a nonspecific cystic structure within the gestational sac. Other: No perigestational fluid collection. Measurement variability in dating: +/- 4 weeks by LMP, +/- 7 days by mean sac diameter (use before 6 weeks gestation if crown-rump length not able to be measured), +/- 5 days by crown-rump length (6-12 weeks gestation). Maternal organs: Ovaries appear within normal limits. IMPRESSION: Probable intrauterine gestational sac with estimated sonographic gestational age of approximately 6 w eeks and 3 days based off mean gestational sac diameter. Possible pole measuring 0.39 cm which correlates with approximately 6 weeks and 0 days estimated gestational age. This has not changed sign ificantly compared to recent ultrasound dated 07/30/2023. No cardiac activity identified on jan cantu's study. Additionally, reported minimally decreasing quantitative hCG level from 6615 to 6430. Yunior mmend continued clinical surveillance with serial quantitative hCG measurements. Short interval follo w-up ultrasound in 14 days can be considered to document expected progression of . Reviewed by: Sly Kent MD on 08/03/2023 10:52 PM PDT Approved by: Sly Kent MD on 08/03/2023 10:52 PM PDT Station ID: [id number]
== END 2023-08-03 21:17 | disposition home or self-care (01) ==
LOC: DI 21:16
PROVIDERS: ATTEND Obstetrics & Gynecology
DX: O36.80X0 Pregnancy with inconclusive fetal viability, not applicable or unspecified (principal)
CPT/HCPCS: 36415; 84702

== ENCOUNTER 2023-08-04 08:32 | Day surgery (SDC) | payer OTHER ==
[~2023-08-04 08:32] MED LIST: ACETAMINOPHEN 325 MG TABLET PO ONE; DOXYCYCLINE 100 MG TABLET PO ONE
[2023-08-04] MEDS: LACTATED RINGERS 1,000 ML IV ONE (08:40)
[2023-08-04] MEDS: LIDOCAINE 1%-EPI 1:100000 20 ML MDV SUBQ ONE (08:51)
[2023-08-04] MEDS ORDERED: LIDOCAINE 1%-EPI 1:100000 20 ML MDV ONE (08:53)
[2023-08-04 09:01] VITALS: BP 107/62; O2SAT 100
[2023-08-04] MEDS ORDERED: fentaNYL 100 MCG/2 ML VIAL ONE (09:29)
[2023-08-04] MEDS ORDERED: MIDAZOLAM 2 MG/2 ML VIAL ONE (09:29)
[2023-08-04] MEDS ORDERED: LIDOCAINE-PF 2% 10 ML AMP SUBQ ONE (09:30)
[2023-08-04] MEDS ORDERED: PROPOFOL 200 MG/20 ML VIAL IVP ONE (09:30)
[2023-08-04] MEDS ORDERED: SUCCINYLCHOLINE 200 MG/10 ML VIAL ONE (09:30)
--- NOTE | 2023-08-04 09:48 | ANESTHESIA ---
Pre-Anesthesia VS, & Labs Vital Signs: Temp Pulse Resp BP Pulse Ox O2 Flow Rate 36.8 C 73 14 107/62 100 08/04/23 08:45 08/04/23 08:45 08/04/23 08:45 08/04/23 08:45 08/04/23 08:45 Height: 5 ft 1 in Weight (kg): 150.4 kg Body Mass Index: 62.6 BMI Classification: Morbidly Obese Home Medications and Allergies Home Medications: Ambulatory Orders Cetirizine [ZyrTEC] 10 mg ORAL DAILY 08/03/23 Cholecalciferol (Vitd3)/Vit K2 [Vit D3-Vit K2 125-100 Mcg Sfgl] 1 cap ORAL DAILY 08/03/23 Magnesium Oxide [Magnesium] 200 mg ORAL DAILY 08/03/23 Pnv No.163/Iron/Folate No.10 [Pnv Tabs 20-1 Tablet] 1 each PO DAILY 08/03/23 Pnv No.95/Ferrous Fum/Folic AC [ Tablet] 1 tab ORAL DAILY 08/03/23 Norgestimate-Ethinyl Estradiol [Fpc-Zu-Kkqdrnqa Tablet] 1 tab PO DAILY 06/13/21 Cetirizine [ZyrTEC] 10 mg ORAL DAILY 08/03/23 Cholecalciferol (Vitd3)/Vit K2 [Vit D3-Vit K2 125-100 Mcg Sfgl] 1 cap ORAL DAILY 08/03/23 Magnesium Oxide [Magnesium] 200 mg ORAL DAILY 08/03/23 Pnv No.163/Iron/Folate No.10 [Pnv Tabs 20-1 Tablet] 1 each PO DAILY 08/03/23 Pnv No.95/Ferrous Fum/Folic AC [ Tablet] 1 tab ORAL DAILY 08/03/23 Allergies/Adverse Reactions: Allergies Allergy/AdvReac Type Severity Reaction Status Date / Time ketorolac [From Toradol] Allergy Anaphylaxis Verified 12/26/21 21:34 Anes History & Medical History - Medical History Cardiovascular: reports: None Pulmonary: reports: Asthma Gastrointestinal: reports: None Urinary: reports: Incontinence, Kidney stones Neuro: reports: None Musculoskeletal: reports: Osteoarthritis Endocrine/Autoimmune: reports: None Skin: reports: Psoriasis Smoking Status: Never smoker - Surgical History General: reports: Appendectomy, Other Eyes Ears Nose Throat (EENT): reports: Other Gynecologic: reports: section
[2023-08-04] MEDS ORDERED: ONDANSETRON 4 MG/2 ML VIAL ONE (11:15)
--- NOTE | 2023-08-04 14:25 | ANESTHESIA POST OP EVALUATION ---
Anesthesia Post Eval - Post Anesthesia Eval Vitals: Last Vital Signs Temp 36.8 C 08/04/23 08:45 Pulse 73 08/04/23 08:45 Resp 14 08/04/23 08:45 BP 107/62 08/04/23 08:45 Pulse Ox 100 08/04/23 08:45 O2 Flow Rate CV Function Including HR & BP: Stable Pain Control: Satisfactory Nausea & Vomiting: Negative Mental Status: Baseline Respiratory Status: Airway Patent Hydration Status: Satisfactory Anesthesia Complications: None
--- NOTE | 2023-08-04 20:57 | OPERATIVE REPORT ---
Operative Report - General Procedure Date: 08/04/23 Planned Procedure: suction D&C to treat missed Pre-Op Diagnosis: missed /blighted ovum Procedure Performed: same Post Op Diagnosis: same - Procedure Note Primary Surgeon: Karol Andrade MD Anesthesia Provider: Satya Murdock CRNA Anesthesia Technique: General LMA Pathology: products of conceptions, tissue for Anora IV Fluids (mL): 500 Estimated Blood Loss (mL): 10 Urine Output (mL): 0 Indications: Patient with falling quant beta HCGs and then ultrasoud with no pole visible and no heart motion x 2 multiple days apart. She wishes suction D&C to remove tissue. Findings: POC, small amount of tissue. sounds to 8 cm. Complications: none - Other Other Information/Narrative: options discussed and she wishes D&C. Feels clear that is not viable after multiple tests show no growth or heart motion. consents signed. She wishes Anora testing with POC. She received 200 mg doxycycline orally upon arrival. She is brought to OR where General anesthesia is induced. She is prepped and draped in normal sterile manner. Exam under anesthesia is done. Speculum placed and cervix washed with betadine. grasped with tenaculum and 7 mm flexible suction curette placed. Suction turned on and uterus emptied easily. [place] done. Gentle sharp curette done, followed by another pass with suction and uterus was contracted so much I could barely get the suction canula in. She was not bleeding. She was awakened and brought to PACU in stable condition. Tissue was and sent for pathology and Anora testing.
== END 2023-08-04 08:33 | disposition home or self-care (01) ==
LOC: SDS 08:32
PROVIDERS: ATTEND Obstetrics & Gynecology
PROC: 10D17ZZ Extraction of Products of Conception, Retained, Via Natural or Artificial Opening (ICD-10-PCS; principal; 2023-08-04 09:30)
DX: O02.0 Blighted ovum and nonhydatidiform mole (principal)
CPT/HCPCS: 59820; A9270; J0330; J7120

== ENCOUNTER 2023-09-08 15:47 | Outpatient (CLI) | payer OTHER ==
[2023-09-08 15:59] LABS: HCT - HEMATOCRIT 39.7 % (37.0-47.0); HGB - HEMOGLOBIN 12.9 g/dL (12.0-16.0); MEAN CORPUSCULAR HEMOGLOBIN 28.7 pg (27.0-31.0); MEAN CORPUSCULAR HGB CONC 32.5 g/dL (32.0-36.0); MEAN CORPUSCULAR VOLUME 88.4 fL (81.0-99.0); MEAN PLATELET VOLUME 9.1 fL (7.9-10.8); RED BLOOD COUNT 4.49 10^6/uL (4.20-5.40); RED CELL DISTRIBUTION WIDTH 13.8 % (12.0-15.0); WHITE BLOOD COUNT 7.4 x10^3/uL (4.8-10.8)
[2023-09-08 16:29] LABS: THYROID STIMULATING HORMONE 0.92 uIU/mL (0.34-5.60)
[2023-09-08 16:35] LABS: FERRITIN 40.9 ng/mL (11.0-306.8)
[2023-09-08 22:56] LABS: ESTIMATED AVERAGE GLUCOSE 94 mg/dL (70-100); HEMOGLOBIN A1c% 4.9 % (4.27-6.07)
== END 2023-09-08 15:48 | disposition home or self-care (01) ==
LOC: LAB 15:47
PROVIDERS: ATTEND Obstetrics & Gynecology
DX: R68.89 Other general symptoms and signs (principal)
CPT/HCPCS: 36415; 82728; 83036; 84443; 85027